=== PATIENT | male | born 1980 | race Caucasian/White ===

== ENCOUNTER → 2017-07-25 12:50 | Outpatient (CLI) | payer OTHER, SELFPAY ==
--- NOTE | 2017-07-25 | DI.CT.S_ITS ---
PROCEDURE: CT ABDOMEN PELVIS W CON INDICATIONS: 36 year-old male with diarrhea. TECHNIQUE: After the administration of oral Volumen contrast and intravenous contrast, 3 mm thick sections acquired from the diaphragm to the symphysis. Coronal and sagittal 3 mm reformatted images acquired through the small and large bowel. For radiation dose reduction, the following was used: automated exposure control, adjustment of mA and/or kV according to patient size. COMPARISON: None. FINDINGS: Image quality: Excellent. ABDOMEN: Lung bases: Lung bases are clear. Heart size is normal. Bowel and peritoneum: Isodense oral contrast is present, and contrast enhanced small bowel loops demonstrate normal wall thickness and caliber. Colon loops are also normal in caliber and wall thickness. The appendix appears normal. No free fluid or air. Solid organs: Liver is normal in size and enhancement. Gallbladder wall thickness is normal. Biliary system is non dilated, without findings to suggest primary sclerosing cholangitis. Pancreas enhances normally, without evidence for autoimmune pancreatitis. Spleen is normal in size and enhancement. No adrenal nodules. Kidneys demonstrate normal size and enhancement, without hydronephrosis. Nodes and vessels: No retroperitoneal or mesenteric adenopathy by size criteria. Aorta and inferior vena cava are normal in caliber. Miscellaneous: No ventral hernias. PELVIS: Genitourinary: Bladder wall thickness is normal. Prostate gland is normal in size. Miscellaneous: No inguinal hernias or adenopathy. Bones: No suspicious bony lesions. No vertebral body compression fractures. No findings to suggest sacroiliitis. Femoral heads demonstrate no findings of advanced avascular necrosis. Bilateral L5 pars defects are present, without L5-S1 spondylolisthesis. IMPRESSION: 1. No imaging explanation for diarrhea. No imaging signs of small bowel inflammation. 2. Bilateral L5 pars defects, without L5-S1 spondylolisthesis. Dictated by: Samuel Goodwin M.D. on 07/25/2017 at 15:11 Approved by: Samuel Goodwin M.D. on 07/25/2017 at 15:19
== END ==
PROVIDERS: Family Provider Internal Medicine Gastroenterology; PCP Internal Medicine Gastroenterology; Visit Provider Internal Medicine Gastroenterology
DX: R19.7 Diarrhea, unspecified (principal); M43.17 Spondylolisthesis, lumbosacral region
CPT/HCPCS: 74177; Q9967